=== PATIENT | female | born 1935 | race Caucasian/White ===

== ENCOUNTER 2018-03-08 13:17 | Emergency (ER) | payer MEDICARE, BC ==
[~2018-03-08] VITALS: Ht 162.6 cm; Wt 65.5 kg
--- NOTE | ~2018-03-08 | MORECARE ---
CASE MANAGEMENT DISCHARGE SUMMARY PATIENT: GOLDY BELTRAN UNIT: [id number] ADM DATE: AGE: 82 : 34 SEX: F ROOM/BED: AUTHOR: BETTY,DOC PHYSICIAN: REFERRING PHYSICIAN: WENDI QUIÑONES MD DATE OF SERVICE: 03/08/18 Discharge Plan Patient Name: GOLDY BELTRAN Facility: [facility]:[place] : 1935 Planned Disposition: Home Anticipated Discharge Date: Discharge Date: 03/08/2018 Expected LOS: 0 Initial Reviewer: [email or web address] Initial Review Date: 03/08/2018 Generated: 03/08/18 7:06 pm Comments DCP- Discharge Planning Updated by [email or web address]: Shannan Barraza on 03/08/18 5:[address] Patient and daughter request visit from CM. Family is unhappy with HHS (for spouse) and concerned that patient's will fall while patient is out of the house. CM informed family that they can change HHS, but the patient states that her does not even want HHS, and she does not like how they document on their tablets, prior to coming in the house and after. Patient states that her c-diff report was positive on Tuesday. CM read the report from todays specimen report, that it is negative. CM offered HHS via Dr. Perales office, but patient states "well, what can they do for me!". Patient sits in bed with her arms crossed and is not happy with CM suggestions for HHS, Private care or Assisted living. Provided patient's daughter with written information on the "[facility]" as the daughter stated that "I live in [place] and cannot move back in order to take care of them(indicating patient/spouse). Daughter expresses that she is grateful for a phone number to start finding home assistance for her parents and is willing to Private pay for the services. Daughter request a consult with Dr. Wills before they leave the ER. CM made her aware that Dr. Abebe's office would be responsible for contacting Dr. Wills's office for an appointment, CM would be happy to contact office, and patient states "I already have an appointment with her arranged." CM is willing to fax information from today's ER visit, but patient refuses and states "that won't help me today." Patient and daughter demanded the discharge paperwork and state " we'll just leave, you are obviously not going to help me!" Spoke with the charge nurse and patient's nurse to make them aware of families disappointment with today's visit. Shannan Barraza RN CM Last DP export: 03/08/18 3:58 Patient Name: GOLDY BELTRAN Page [id number] at 1806 All edits/amendments must be made on the electronic document DICTATION DATE: 03/08/181805 LOAD TEST MECHANIC: PELON 03/08/181805 RPT#: [id number] [place] DATE:03/08/18 STATUS: DEP [facility] [address] [place] [address] END OF REPORT
--- NOTE | ~2018-03-08 | MORECARE ---
CASE MANAGEMENT DISCHARGE SUMMARY PATIENT: GOLDY BELTRAN S UNIT: [id number] ADM DATE: AGE: 82 : 34 SEX: F ROOM/BED: AUTHOR: PANKAJ HERNÁNDEZ PHYSICIAN: REFERRING PHYSICIAN: WENDI QUIÑONES MD DATE OF SERVICE: 03/08/18 Discharge Plan Patient Name: GOLDY BELTRAN Facility: [facility]:[place] : 1935 Planned Disposition: Home Anticipated Discharge Date: Discharge Date: Expected LOS: 0 Initial Reviewer: [email or web address] Initial Review Date: 03/08/2018 Generated: 03/08/18 5:58 pm Patient Name: GOLDY BELTRAN Page [id number] at 1654 All edits/amendments must be made on the electronic document DICTATION DATE: 03/08/181657 INTEGRATION PROJECT MANAGER: PELON 03/08/181657 RPT#: [id number] DC DATE: STATUS: REG [facility] [address] [place] [address] END OF REPORT
--- NOTE | ~2018-03-08 | MORECARE ---
CASE MANAGEMENT DISCHARGE SUMMARY PATIENT: GOLDY BELTRAN UNIT: [id number] ADM DATE: AGE: 82 : 34 SEX: F ROOM/BED: AUTHOR: BETTY,DOC PHYSICIAN: REFERRING PHYSICIAN: WENDI QUIÑONES MD DATE OF SERVICE: 03/23/18 Discharge Plan Patient Name: GOLDY BELTRAN Facility: [facility]:[place] : 1935 Planned Disposition: Home Anticipated Discharge Date: Discharge Date: 03/08/2018 Expected LOS: 0 Initial Reviewer: [email or web address] Initial Review Date: 03/08/2018 Generated: 03/23/18 11:18 am Comments DCP- Discharge Planning Updated by [email or web address]: Shannan Barraza on 03/08/18 5:[address] Patient and daughter request visit from CM. Family is unhappy with HHS (for spouse) and concerned that patient's will fall while patient is out of the house. CM informed family that they can change HHS, but the patient states that her does not even want HHS, and she does not like how they document on their tablets, prior to coming in the house and after. Patient states that her c-diff report was positive on Tuesday. CM read the report from todays specimen report, that it is negative. CM offered HHS via Dr. Perales office, but patient states "well, what can they do for me!". Patient sits in bed with her arms crossed and is not happy with CM suggestions for HHS, Private care or Assisted living. Provided patient's daughter with written information on the "[facility]" as the daughter stated that "I live in [place] and cannot move back in order to take care of them(indicating patient/spouse). Daughter expresses that she is grateful for a phone number to start finding home assistance for her parents and is willing to Private pay for the services. Daughter request a consult with Dr. Wills before they leave the ER. CM made her aware that Dr. Abebe's office would be responsible for contacting Dr. Wills's office for an appointment, CM would be happy to contact office, and patient states "I already have an appointment with her arranged." CM is willing to fax information from today's ER visit, but patient refuses and states "that won't help me today." Patient and daughter demanded the discharge paperwork and state " we'll just leave, you are obviously not going to help me!" Spoke with the charge nurse and patient's nurse to make them aware of families disappointment with today's visit. Shannan Barraza RN CM Last DP export: 03/08/18 5:06 Patient Name: GOLDY BELTRAN Page [id number] at 1018 All edits/amendments must be made on the electronic document DICTATION DATE: 03/23/18 1017 MUSHROOM FARMER: PELON 03/23/18 1017 RPT#: [id number] [place] DATE:03/08/18 STATUS: DEP [facility] [address] [place] [address] END OF REPORT
[2018-03-08 13:27] VITALS: Ht 162.6 cm; Wt 65.5 kg
[2018-03-08 14:24] LABS: BASOPHILS 0.4 % (0-2); EOSINOPHILS 1.3 % (0-7); HEMATOCRIT 37.4 % (36.0-48.0); HEMOGLOBIN 12.7 g/dL (12-16); LYMPHOCYTES 32.5 % (15-50); MCH 32.1 pg (26.0-34.0); MCV 94.4 fL (80.0-100.0); MEAN PLATELET VOLUME 10.1 fL (7.4-10.4); MONOCYTES 12.1 % (2-11); NEUTROPHILS 53.7 % (40-80); PLATELET COUNT 170 10x3/uL (130-400); RBC 3.96 10x6/uL (4.00-5.40); RDW 13.3 % (11.5-14.5); WBC 4.6 10x3/uL (4.8-10.8)
[2018-03-08 14:35] LABS: ALBUMIN 3.4 g/dL (3.4-5.0); ANION GAP 13.3 mmol/L (8-16); BILIRUBIN - TOTAL 0.47 mg/dL (0.2-1.3); CALCIUM 8.8 mg/dL (8.5-10.1); CARBON DIOXIDE 26.6 mmol/L (21.0-32.0); CREATININE - SERUM 0.8 mg/dL (0.6-1.3); PROTEIN - SERUM 7.1 g/dL (6.4-8.2)
[2018-03-08 14:44] LABS: APPEARANCE CLEAR (CLEAR); BILIRUBIN NEGATIVE (NEGATIVE); COLOR YELLOW (YELLOW); GLUCOSE NEGATIVE (NEGATIVE); KETONE MODERATE mg/dL (NEGATIVE); NITRITE NEGATIVE (NEGATIVE); PROTEIN NEGATIVE (NEGATIVE); SPECIFIC GRAVITY 1.025 (1.005-1.020); UROBILINOGEN NORMAL (NORMAL)
[2018-03-08 14:44] LABS: POTASSIUM - SERUM 2.9 mmol/L (3.5-5.1)
[2018-03-08] MEDS ORDERED: K-DUR20 MEQ PO (15:56)
[2018-03-08 17:00] VITALS: BP 138/80
== END 2018-03-08 16:57 | disposition home or self-care (01) ==
LOC: D.ER 13:17
PROVIDERS: Emergency Medicine
DX: A04.72 Enterocolitis due to Clostridium difficile, not specified as recurrent (principal); E87.6 Hypokalemia

== ENCOUNTER 2018-05-19 10:46 | Day surgery (SDC) | payer MEDICARE, BC ==
[~2018-05-19] VITALS: Ht 162.6 cm; Wt 66.8 kg
[~2018-05-19 10:46] MED LIST: K-DUR20 MEQ PO
[2018-05-19 11:20] LABS: BASOPHILS 0.2 % (0-2); EOSINOPHILS 1.1 % (0-7); HEMATOCRIT 38.1 % (36.0-48.0); HEMOGLOBIN 12.7 g/dL (12-16); IMMATURE GRANULOCYTES 0.2 % (0-5); LYMPHOCYTES 34.7 % (15-50); MCH 32.2 pg (26.0-34.0); MCHC 33.3 g/dL (31.0-37.0); MCV 96.5 fL (80.0-100.0); MONOCYTES 8.4 % (2-11); NEUTROPHILS 55.4 % (40-80); PLATELET COUNT 163 10x3/uL (130-400); RBC 3.95 10x6/uL (4.00-5.40); RDW 13.7 % (11.5-14.5); WBC 4.6 10x3/uL (4.8-10.8)
[2018-05-19 11:53] LABS: ANION GAP 13.1 mmol/L (8-16); CALCIUM 8.3 mg/dL (8.5-10.1); CARBON DIOXIDE 27.3 mmol/L (21.0-32.0); CREATININE - SERUM 0.8 mg/dL (0.6-1.3); POTASSIUM - SERUM 4.4 mmol/L (3.5-5.1)
[2018-05-19] MEDS ORDERED: LEVOTHYROXINE75 MCG PO (12:59)
[2018-05-19] MEDS ORDERED: CENTRUM SILVER1 EAC3 PO (13:00)
[2018-05-19] MEDS ORDERED: PROBIOTIC250 MG PO (13:00)
[2018-05-19 13:07] VITALS: BP 140/62; Ht 162.6 cm; Wt 66.8 kg
--- NOTE | 2018-05-19 13:57 | NUR ---
OPEN[employer] TRANSPLANT - [id number] [employer] TRANSPLANT - [id number]
--- NOTE | 2018-05-23 11:29 | OP ---
PATIENT NAME: GOLDY BELTRAN MEDICAL RECORD: [id number] :33 LOCATION:D.OPS ADMISSION DATE: SURGEON: RAMIRO STUART MD DATE OF OPERATION: 05/19/2018 PROCEDURE: EGD with fecal microbial transplant. INDICATIONS: Ms. Beltran is a delightful 82-year-old woman with a history of recurrent Clostridium difficile colitis. She has been intolerant of Flagyl (caused tingling and swelling of hands) as well as vancomycin which caused rash and then she was on a trial of Xifaxan with persistent C. diff toxin positive stools. She presents for outpatient fecal microbial transplant. PREMEDICATIONS: Total IV anesthesia (advanced age) propofol 110 mg. INSTRUMENT: Olympus video pediatric colonoscope. PROCEDURE AND FINDINGS: After receiving informed consent, Ms. Beltran posterior pharynx was anesthetized with Cetacaine spray. She was placed in the left lateral decubitus position, sedated as per anesthesia. After achieving an adequate level of sedation, the colonoscope was introduced per orally and advanced into the jejunum without difficulty. The scope advanced to approximately 125 cm into the jejunum. At that location, 60 cc of fecal microbial transplant was deployed (flushed through the colonoscope). A 180 cc of free water was used to flush the transplant. Flushes were used and then the colonoscope was withdrawn. Small hiatal hernia is present. Ms. Beltran tolerated the procedure well. No immediate complications. ASSESSMENT: 1. Small hiatal hernia. 2. Status post fecal microbial transplant. RECOMMENDATIONS: 1. Continue probiotics. 2. Continue infectious control protocol at home until stools are formed. 3. Avoid antibiotics for at least 6 months if possible. TRANSINT:[id number] Voice Confirmation ID: [id number] DOCUMENT ID: [id number] RAMIRO STUART MD at 1129 CC: JOSE HAN [id number] DICTATION DATE: 05/19/18 1415 SONOGRAPHY TECHNOLOGIST: 05/19/18 194 [facility] 05/19/18 [facility] [address] [place] [address]
== END 2018-05-19 15:00 | disposition home or self-care (01) ==
LOC: D.OPS 10:46
PROVIDERS: Anesthesiology; Internal Medicine Gastroenterology
DX: A04.71 Enterocolitis due to Clostridium difficile, recurrent (principal); Z16.30 Resistance to unspecified antimicrobial drugs